=== PATIENT | female | born 1980 | race Caucasian/White ===

== ENCOUNTER 2017-12-06 07:34 | Inpatient (IN) | payer OTHER ==
[2017-12-06] VITALS (25 sets, daily range): BP systolic 120–154; BP diastolic 65–84
[~2017-12-06] VITALS: Ht 152.4 cm; Wt 84.0 kg
[~2017-12-06 07:34] MED LIST: CHROMAGEN,1 CAPSULE PO; IBUPROFEN800 MG PO; PRENATAL TABLE1 EAC3 PO
[2017-12-06 11:10] LABS: BASOPHIL (%) 0.3 % (0-1); EOSINOPHIL (%) 1.1 % (0-5); EOSINOPHIL COUNT 0.1 K/uL (0-0.3); HEMATOCRIT 29.8 % (36.0-46.0); HEMOGLOBIN 9.7 G/DL (11.9-15.5); IMMATURE GRANULOCYTE (%) 0.4 % (0.0-0.7); LYMPHOCYTE (%) 18.3 % (15-42); LYMPHOCYTE COUNT 1.8 K/uL (1.0-2.8); MCH 26.8 PG (29.0-34.0); MCHC 32.6 G/DL (30.0-36.0); MCV 82.3 FL (83-99); MONOCYTE (%) 3.9 % (3-12); MONOCYTE COUNT 0.4 K/uL (0-0.8); NEUTROPHIL COUNT 7.5 K/uL (1.8-6.4); PLATELET COUNT 287 K/uL (156-360); RBC DIS.WIDTH-CV 13.9 % (11.8-14.6); RBC DIS.WIDTH-SD 41.5 % (39-53); RED BLOOD COUNT 3.62 M/uL (3.80-5.20); WHITE BLOOD COUNT 9.9 K/uL (4.1-10.2)
[2017-12-07 07:37] VITALS: BP 133/96
[2017-12-07 07:42] LABS: BASOPHIL (%) 0.2 % (0-1); EOSINOPHIL (%) 0.9 % (0-5); EOSINOPHIL COUNT 0.2 K/uL (0-0.3); HEMATOCRIT 29.2 % (36.0-46.0); HEMOGLOBIN 9.5 G/DL (11.9-15.5); IMMATURE GRANULOCYTE (%) 0.6 % (0.0-0.7); LYMPHOCYTE (%) 14.9 % (15-42); LYMPHOCYTE COUNT 2.5 K/uL (1.0-2.8); MCH 26.8 PG (29.0-34.0); MCHC 32.5 G/DL (30.0-36.0); MCV 82.5 FL (83-99); MONOCYTE (%) 3.7 % (3-12); MONOCYTE COUNT 0.6 K/uL (0-0.8); NEUTROPHIL (%) 79.7 % (45-76); NEUTROPHIL COUNT 13.4 K/uL (1.8-6.4); PLATELET COUNT 257 K/uL (156-360); RBC DIS.WIDTH-SD 41.8 % (39-53); RED BLOOD COUNT 3.54 M/uL (3.80-5.20); WHITE BLOOD COUNT 16.8 K/uL (4.1-10.2)
[2017-12-07 11:23] VITALS: BP 137/97
[2017-12-07 15:52] VITALS: BP 133/89
[2017-12-08 07:06] VITALS: BP 132/88
[2017-12-08] MEDS ORDERED: IRON325 M1 PO (12:22)
== END 2017-12-08 15:38 | disposition home or self-care (01) | DRG 775 ==
LOC: LDRP-OP → 2WEST 07:35 → LDRP-OP 01-13 13:39
PROVIDERS: Advanced Practice Midwife
PROC: 3E0R3BZ Introduction of Anesthetic Agent into Spinal Canal, Percutaneous Approach (ICD-10-PCS; principal; 2017-12-06)
PROC: 10907ZC Drainage of Amniotic Fluid, Therapeutic from Products of Conception, Via Natural or Artificial Opening (ICD-10-PCS; principal; 2017-12-06)
PROC: 00HU33Z Insertion of Infusion Device into Spinal Canal, Percutaneous Approach (ICD-10-PCS; principal; 2017-12-06)
PROC: 10E0XZZ Delivery of Products of Conception, External Approach (ICD-10-PCS; principal; 2017-12-06)
PROC: 3E033VJ Introduction of Other Hormone into Peripheral Vein, Percutaneous Approach (ICD-10-PCS; principal; 2017-12-06)
PROC: 0U7C7ZZ Dilation of Cervix, Via Natural or Artificial Opening (ICD-10-PCS; principal; 2017-12-06)
DX: O77.0 Labor and delivery complicated by meconium in amniotic fluid (principal); O99.214 Obesity complicating childbirth; E66.9 Obesity, unspecified; Z68.33 Body mass index [BMI] 33.0-33.9, adult; O99.334 Smoking (tobacco) complicating childbirth; F17.210 Nicotine dependence, cigarettes, uncomplicated; Z3A.39 39 weeks gestation of pregnancy; Z37.0 Single live birth; Z82.5 Family history of asthma and other chronic lower respiratory diseases
CPT/HCPCS: 85025; C1755; J1050; J3010; J7120